=== PATIENT | male | born 1940 | race Caucasian/White ===

== ENCOUNTER 2016-10-19 20:04 | Inpatient (IN) | payer MEDICARE, OTHER ==
[~2016-10-19] VITALS: Ht 172.7 cm; Wt 102.8 kg
[~2016-10-19 20:04] MED LIST: ALBUTEROL2.5 MG/3 M INH; ALDACTONE25 M1 PO; ASPIRIN81 M1 PO; AUGMENTIN 875-1 EAC2 PO; BRILINTA90 M1 PO; COREG25 M1 PO; CRESTOR20 M1 PO; CYCLOBENZAPRINE5 M1 PO; DAPSONE100 M1 PO; DEXAMETHASONE4 M1 PO; DULERA 200 MCG/13 G1 INH; FUROSEMIDE40 M2 PO; HUMALOG100 UNIT/2 SC; HUMULIN N100 UNIT/3 SC; HYDROCODON-ACE1 EA16 PO; LASIX40 M1 PO; LIPITOR40 M1 PO; MINOXIDIL10 M1 PO; NORVASC5 M2 PO; PLACEBO #001 EACH PO; PREDNISONE10 M1 PO; PROTONIX40 M2 PO; RANEXA1000 M1 PO; REQUIP1 M1 PO; REVLIMID10 M1 PO; ROPINIROLE HCL1 M1 PO; SPIRIVA18 MC1 INH; TORSEMIDE100 M1 PO; TYLENOL EXTRA500 M1 PO; ULTRAM50 M1 PO; VELCADE3.5 MG/VIA SC; VITAMIN D250000 UNI1 PO; ZOFRAN8 M1 PO; ZOVIRAX400 M1 PO; ZYLOPRIM100 M1 PO
[2016-10-19] MEDS ORDERED: ASPIRIN81 M1 PO (20:53)
[2016-10-19] MEDS ORDERED: BRILINTA90 M1 PO (20:54)
[2016-10-19 21:07] LABS: BASO % 0.2 % (0-2); EOS % 0.5 % (0-7); HCT-HEMATOCRIT 30.8 % (36.0-53.5); HGB-HEMOGLOBIN 10.1 gm/dl (13.5-17.0); IMMATURE GRANULOCYTES ABSOLUTE 0.03 tho/cmm (0-0.03); IMMATURE GRANULOCYTES PERCENT 0.5 % (0-0.3); LYMPH % 9.7 % (20-45); LYMPH ABSOLUTE COUNT 0.6 tho/cmm (0.8-4.5); MCHC MEAN CORPUSCULAR HGB CONC 32.8 % (32.0-36.0); MCV (MEAN CELL VOLUME) 97.5 fl (82.0-96.0); MEAN PLATELET VOLUME 11.6 cmc (9.4-12.4); MONO % 8.2 % (0-12); MONOCYTE ABSOLUTE COUNT 0.5 tho/cmm (0.0-1.2); NEUTROPHIL ABSOLUTE COUNT 5.1 tho/cmm (1.6-8.0); NEUTROPHIL-AUTOMATED 5.1 tho/cmm (1.6-8.0); NEUTROPHILS % 80.9 % (40-80); PLATELET COUNT 99 tho/cmm (150-450); RED BLOOD COUNT 3.16 mil/cmm (4.40-5.70); RED CELL DISTRIBUTION WIDTH 17.8 % (12.4-16.4); WHITE BLOOD COUNT 6.3 tho/cmm (4.0-10.0)
[2016-10-19 21:29] LABS: URINE LEUKOCYTE ESTERASE NEGATIVE (NEG); URINE PROTEIN MODERATE (NEG)
[2016-10-19 21:33] LABS: ALB/GLOB RATIO 0.6 (0.8-2.0); ALBUMIN 2.9 g/dl (3.5-5.0); ALKALINE PHOSPHATASE 101 U/L (33-138); ALT/SGPT 24 U/L (12-78); ANION GAP 13 mmol/L (0-20); AST/SGOT 16 U/L (10-40); BILIRUBIN,TOTAL 1.8 mg/dl (0.0-1.5); BLOOD UREA NITROGEN 54 mg/dl (6-24); CALCIUM 7.9 mg/dl (8.5-10.5); CARBON DIOXIDE-VENOUS 23 mmol/L (22-32); CHLORIDE 101 mmol/l (96-110); CREATININE 2.33 mg/dl (0.60-1.30); GLUCOSE 231 mg/dL (70-110); POTASSIUM 3.8 mmol/L (3.7-5.1); SODIUM 133 mmol/L (135-145); eGFR VALUE FOR BLACK 31 mL/Min
[2016-10-19 21:35] LABS: URINE APPEARANCE HAZY; URINE BILIRUBIN NEGATIVE (NEG); URINE BLOOD NEGATIVE (NEG); URINE COLOR YELLOW; URINE GLUCOSE (UA) LARGE (NEG); URINE KETONE NEGATIVE (NEG); URINE NITRITE NEGATIVE (NEG)
[2016-10-19 21:38] LABS: PROCALCITONIN 1.33 ng/ml (0.05-0.09)
[2016-10-19 21:42] LABS: URINE EPITHELIAL CELLS RARE /[HPF] (0-10); URINE RBC RARE /[HPF] (0-5); URINE WBC 0-2 /[HPF] (0-5)
[2016-10-19 21:43] LABS: URINE AMORPHOUS 1+
[2016-10-19] MEDS ORDERED: TYLENOL EXTRA500 M1 PO (22:27)
[2016-10-21 06:17] LABS: BASO % 0.2 % (0-2); EOS % 1.7 % (0-7); EOSINOPHIL ABSOLUTE COUNT 0.1 tho/cmm (0.0-0.7); HCT-HEMATOCRIT 24.6 % (36.0-53.5); HGB-HEMOGLOBIN 8.5 gm/dl (13.5-17.0); IMMATURE GRANULOCYTES ABSOLUTE 0.04 tho/cmm (0-0.03); IMMATURE GRANULOCYTES PERCENT 0.6 % (0-0.3); LYMPH % 9.6 % (20-45); LYMPH ABSOLUTE COUNT 0.6 tho/cmm (0.8-4.5); MCH (MEAN CORPUSCULAR HGB) 33.3 pg (28.0-32.0); MCHC MEAN CORPUSCULAR HGB CONC 34.6 % (32.0-36.0); MCV (MEAN CELL VOLUME) 96.5 fl (82.0-96.0); MONO % 8.5 % (0-12); MONOCYTE ABSOLUTE COUNT 0.6 tho/cmm (0.0-1.2); NEUTROPHIL ABSOLUTE COUNT 5.2 tho/cmm (1.6-8.0); NEUTROPHIL-AUTOMATED 5.2 tho/cmm (1.6-8.0); NEUTROPHILS % 79.4 % (40-80); RED BLOOD COUNT 2.55 mil/cmm (4.40-5.70); RED CELL DISTRIBUTION WIDTH 18.4 % (12.4-16.4); WHITE BLOOD COUNT 6.6 tho/cmm (4.0-10.0)
[2016-10-21 06:47] LABS: ANION GAP 12 mmol/L (0-20); BLOOD UREA NITROGEN 40 mg/dl (6-24); CALCIUM 7.2 mg/dl (8.5-10.5); CARBON DIOXIDE-VENOUS 21 mmol/L (22-32); CHLORIDE 101 mmol/l (96-110); GLUCOSE 258 mg/dL (70-110); POTASSIUM 3.7 mmol/L (3.7-5.1); SODIUM 130 mmol/L (135-145); eGFR VALUE FOR BLACK 54 mL/Min
[2016-10-21 07:14] LABS: CREATININE 1.45 mg/dl (0.60-1.30)
[2016-10-21 07:38] LABS: PLATELET COUNT 119 tho/cmm (150-450)
[2016-10-22 07:34] LABS: EOS % 1.8 % (0-7); EOSINOPHIL ABSOLUTE COUNT 0.1 tho/cmm (0.0-0.7); HCT-HEMATOCRIT 24.5 % (36.0-53.5); HGB-HEMOGLOBIN 7.9 gm/dl (13.5-17.0); IMMATURE GRANULOCYTES ABSOLUTE 0.02 tho/cmm (0-0.03); IMMATURE GRANULOCYTES PERCENT 0.4 % (0-0.3); LYMPH % 9.7 % (20-45); LYMPH ABSOLUTE COUNT 0.4 tho/cmm (0.8-4.5); MCV (MEAN CELL VOLUME) 97.2 fl (82.0-96.0); MEAN PLATELET VOLUME 12.1 cmc (9.4-12.4); MONO % 12.1 % (0-12); MONOCYTE ABSOLUTE COUNT 0.6 tho/cmm (0.0-1.2); NEUTROPHIL ABSOLUTE COUNT 3.4 tho/cmm (1.6-8.0); NEUTROPHIL-AUTOMATED 3.4 tho/cmm (1.6-8.0); PLATELET COUNT 92 tho/cmm (150-450); RED BLOOD COUNT 2.52 mil/cmm (4.40-5.70); RED CELL DISTRIBUTION WIDTH 18.1 % (12.4-16.4); WHITE BLOOD COUNT 4.5 tho/cmm (4.0-10.0)
[2016-10-22 07:41] LABS: MCH (MEAN CORPUSCULAR HGB) 31.3 pg (28.0-32.0); MCHC MEAN CORPUSCULAR HGB CONC 32.2 % (32.0-36.0)
[2016-10-22 07:45] LABS: ANION GAP 12 mmol/L (0-20); BLOOD UREA NITROGEN 30 mg/dl (6-24); CALCIUM 7.5 mg/dl (8.5-10.5); CARBON DIOXIDE-VENOUS 24 mmol/L (22-32); CHLORIDE 105 mmol/l (96-110); CREATININE 1.31 mg/dl (0.60-1.30); POTASSIUM 3.4 mmol/L (3.7-5.1); SODIUM 138 mmol/L (135-145); eGFR VALUE FOR BLACK 61 mL/Min
[2016-10-22 07:48] LABS: GLUCOSE 90 mg/dL (70-110)
[2016-10-22] MEDS ORDERED: DEMADEX20 M1 PO (15:36)
[2016-10-22] MEDS ORDERED: FLOMAX0.4 M1 PO (15:40)
[2016-10-22] MEDS ORDERED: ALDACTONE25 M1 PO (15:41)
[2016-10-22] MEDS ORDERED: HUMULIN N100 UNIT/2 SC (15:44)
== END 2016-10-22 17:25 | disposition home health service (06) | DRG 841 ==
LOC: EDMED 20:04 → EMR2 22:50 → 5WF 22:50
PROVIDERS: Emergency Medicine; ADMIT Internal Medicine
DX: C90.00 Multiple myeloma not having achieved remission (principal); I13.0 Hypertensive heart and chronic kidney disease with heart failure and stage 1 through stage 4 chronic kidney disease, or unspecified chronic kidney disease; N18.4 Chronic kidney disease, stage 4 (severe); E11.22 Type 2 diabetes mellitus with diabetic chronic kidney disease; I50.30 Unspecified diastolic (congestive) heart failure; E78.1 Pure hyperglyceridemia; Z91.81 History of falling; E66.9 Obesity, unspecified; Z68.33 Body mass index [BMI] 33.0-33.9, adult; Z79.4 Long term (current) use of insulin; I25.10 Atherosclerotic heart disease of native coronary artery without angina pectoris; I35.0 Nonrheumatic aortic (valve) stenosis; K21.9 Gastro-esophageal reflux disease without esophagitis; Z95.5 Presence of coronary angioplasty implant and graft; E79.0 Hyperuricemia without signs of inflammatory arthritis and tophaceous disease
CPT/HCPCS: J1650; J1815; J2270; J2543; J7030